=== PATIENT | female | born 1935 | race Caucasian/White ===

== ENCOUNTER 2016-09-06 15:13 | Inpatient (IN) | payer MEDICARE, OTHER ==
[~2016-09-06] VITALS: Ht 160 cm; Wt 47.7 kg
[~2016-09-06 15:13] MED LIST: BACITRACIN OINT TOPICAL ONE; ESMOLOL 100 MG/10 ML VL IV ONE; FENTANYL 100 MCG/2 ML AMP IV ONE; KETAMINE INJ 50 MG/ML VIAL IV ONE; ONDANSETRON 4 MG VIAL IV PUSH ONE; PHENYLEPHRINE 10 MG/ML VIAL IV ONE; PROPOFOL 50ML PER ML IV ONE
[2016-09-06] MEDS ORDERED: MORPHINE 2 MG/ML SYR ONE ×3 (16:32→18:30)
[2016-09-06] MEDS ORDERED: ONDANSETRON 4 MG VIAL ONE (16:32)
[2016-09-06] MEDS ORDERED: ALU/MAG/SIM 30 ML UDC PO PRN (20:50)
[2016-09-06] MEDS ORDERED: SALINE FLUSH 10 ML FLUSH PRN (20:50)
[2016-09-06] MEDS ORDERED: MAG HYDROX 30 ML UDC PO PRN (20:50)
[2016-09-06] MEDS ORDERED: BISACODYL 10 MG SUPP RECTAL PRN (20:50)
[2016-09-06] MEDS ORDERED: ONDANSETRON 4 MG VIAL IV PRN (20:50)
[2016-09-06] MEDS ORDERED: LACT RINGERS 1,000 ML IV SCH (20:50)
[2016-09-06] MEDS ORDERED: BISACODYL EC 5 MG TAB PO PRN (20:50)
[2016-09-06] MEDS ORDERED: MORPHINE 2 MG/ML SYR IV PRN (20:50)
[2016-09-06 21:24] VITALS: BP_SYST 132; RESP 20; TEMP 98
[2016-09-06 22:30] VITALS: Ht 160 cm; Wt 47.7 kg
[2016-09-06] MEDS ORDERED: LORAZEPAM 2 MG/ML VIAL IV ONE (23:35)
[2016-09-07] VITALS (25 sets, daily range): BP systolic 93–150; RESP 10–20; TEMP 97–99.7
[2016-09-07] MEDS ORDERED: GLUCAGON 1 MG VIAL IM PRN (00:05)
[2016-09-07] MEDS ORDERED: DEXTROSE 50% SYRINGE 50 ML IV PRN (00:05)
[2016-09-07] MEDS: DILAUDID 1 MG/ML AMP IV PRN ×4 (01:59→22:04)
[2016-09-07] MEDS: SODIUM CHLORIDE 0.9% FLUSH BAG 500 ML IV SCH (06:00)
[2016-09-07] MEDS ORDERED: CLINDAMYCIN 900 MG in DEXTROSE 5% 50 ML IV ONE (07:10)
[2016-09-07] MEDS ORDERED: PHARMACY TO DOSE VANCOMYCIN IV ONE (07:10)
[2016-09-07] MEDS ORDERED: VANCOMYCIN 750 MG in SODIUM CHLORIDE 0.9% 250 ML IV ONE (07:15)
[2016-09-07] MEDS: SALINE FLUSH 10 ML FLUSH SCH ×3 (08:00→19:58)
[2016-09-07] MEDS ORDERED: LACT RINGERS 1,000 ML IV SCH ×2 (09:05→16:00)
[2016-09-07] MEDS ORDERED: MORPHINE 4 MG/ML SYR IV PRN (14:55)
[2016-09-07] MEDS ORDERED: ONDANSETRON 4 MG VIAL IV PRN ×2 (14:55→16:00)
[2016-09-07] MEDS ORDERED: OXYCODONE 5 MG TAB PO PRN (14:55)
[2016-09-07] MEDS ORDERED: DILAUDID 1 MG/ML AMP IV PRN (14:55)
[2016-09-07] MEDS ORDERED: MORPHINE 2 MG/ML SYR IV PRN (14:55)
[2016-09-07] MEDS ORDERED: MEPERIDINE 25 MG/ML IV PRN (14:55)
[2016-09-07] MEDS ORDERED: SALINE FLUSH 10 ML FLUSH PRN (16:00)
[2016-09-07] MEDS ORDERED: PHARMACY TO DOSE VANCOMYCIN IV SCH (16:00)
[2016-09-07] MEDS ORDERED: ZOLPIDEM 5 MG TAB PO PRN (16:00)
[2016-09-07] MEDS ORDERED: MAG HYDROX 30 ML UDC PO PRN (16:00)
[2016-09-07] MEDS: CLINDAMYCIN 900 MG in DEXTROSE 5% 50 ML IV SCH (19:53)
[2016-09-07] MEDS: SENNA 8.6 MG TAB PO SCH (20:01)
[2016-09-07] MEDS: PRAVASTATIN 40 MG TAB PO SCH (20:01)
[2016-09-07] MEDS: DOCUSATE SOD 100 MG CAP PO SCH (20:01)
[2016-09-08] MEDS: CLINDAMYCIN 900 MG in DEXTROSE 5% 50 ML IV SCH ×3 (01:59→13:07)
[2016-09-08 03:48] VITALS: BP_SYST 104; RESP 18; TEMP 97.6
[2016-09-08] MEDS: SODIUM CHLORIDE 0.9% FLUSH BAG 500 ML IV SCH ×2 (06:00)
[2016-09-08] MEDS ORDERED: Rivaroxaban 10 MG TAB PO SCH (06:00)
[2016-09-08] MEDS: LEVOTHYROXINE 0.025 MG TAB PO SCH (06:56)
[2016-09-08] MEDS: SALINE FLUSH 10 ML FLUSH SCH ×3 (08:00→20:20)
[2016-09-08 08:06] VITALS: BP_SYST 110; RESP 16; TEMP 98.1
[2016-09-08] MEDS: FLUDROCORTISONE 0.1 MG TAB PO SCH (08:40)
[2016-09-08] MEDS: ASPIRIN 81 MG CHEW TAB PO SCH (08:40)
[2016-09-08] MEDS: ESCITALOPRAM 10 MG TAB PO SCH (08:40)
[2016-09-08] MEDS: LEVEMIR INSULIN SUBQ SCH (08:41)
[2016-09-08] MEDS: POLYETHYLENE GLYCOL 17 GM PACKET PO SCH (08:41)
[2016-09-08] MEDS: SENNA 8.6 MG TAB PO SCH ×2 (08:41→20:19)
[2016-09-08] MEDS: DOCUSATE SOD 100 MG CAP PO SCH ×2 (08:41→20:19)
[2016-09-08] MEDS: MAG HYDROX 30 ML UDC PO SCH (08:41)
[2016-09-08] MEDS: ENOXAPARIN 40 MG/0.4 ML SYR SUBQ SCH (08:43)
[2016-09-08] MEDS ORDERED: VANCOMYCIN 750 MG in SODIUM CHLORIDE 0.9% 250 ML IV ONE (10:00)
[2016-09-08 12:21] VITALS: BP_SYST 122; RESP 16; TEMP 97.6
[2016-09-08 16:10] VITALS: BP_SYST 98; RESP 20; TEMP 97.5
[2016-09-08] MEDS ORDERED: DILAUDID 1 MG/ML AMP IV PRN (17:35)
[2016-09-08] MEDS ORDERED: FLEET ENEMA 132 ML BTL RECTAL PRN (18:05)
[2016-09-08] MEDS ORDERED: BISACODYL 10 MG SUPP RECTAL PRN (18:05)
[2016-09-08] MEDS: PRAVASTATIN 40 MG TAB PO SCH (20:19)
[2016-09-08 23:08] VITALS: BP_SYST 104; RESP 18; TEMP 98
[2016-09-09 04:02] VITALS: BP_SYST 135; RESP 18; TEMP 99.8
[2016-09-09] MEDS: SODIUM CHLORIDE 0.9% FLUSH BAG 500 ML IV SCH ×2 (06:00)
[2016-09-09] MEDS: LEVOTHYROXINE 0.025 MG TAB PO SCH (06:34)
[2016-09-09] MEDS: MAG HYDROX 30 ML UDC PO SCH (07:53)
[2016-09-09] MEDS: DOCUSATE SOD 100 MG CAP PO SCH ×2 (07:54→20:43)
[2016-09-09] MEDS: ASPIRIN 81 MG CHEW TAB PO SCH (07:54)
[2016-09-09] MEDS: FLUDROCORTISONE 0.1 MG TAB PO SCH (07:54)
[2016-09-09] MEDS: SENNA 8.6 MG TAB PO SCH ×2 (07:54→20:42)
[2016-09-09] MEDS: ESCITALOPRAM 10 MG TAB PO SCH (07:54)
[2016-09-09] MEDS: ENOXAPARIN 40 MG/0.4 ML SYR SUBQ SCH (07:56)
[2016-09-09] MEDS: LEVEMIR INSULIN SUBQ SCH (07:57)
[2016-09-09] MEDS: POLYETHYLENE GLYCOL 17 GM PACKET PO SCH (07:57)
[2016-09-09] MEDS: SALINE FLUSH 10 ML FLUSH SCH ×2 (07:57→20:00)
[2016-09-09 08:21] VITALS: BP_SYST 138; RESP 18
[2016-09-09] MEDS: HALOPERIDOL 5 MG/ML VIAL IM/IV PRN (09:22)
[2016-09-09] MEDS: ACETAMINOPHEN 500 MG TAB PO SCH ×3 (09:23→23:48)
[2016-09-09 11:00] VITALS: BP_SYST 130; RESP 18; TEMP 98.3
[2016-09-09] MEDS: DIGOXIN 0.125 MG TAB PO SCH ×2 (12:18→13:02)
[2016-09-09 15:22] VITALS: BP_SYST 130; RESP 20; TEMP 97.1
[2016-09-09 19:17] VITALS: BP_SYST 140; RESP 16; TEMP 98
[2016-09-09] MEDS: PRAVASTATIN 40 MG TAB PO SCH (20:43)
[2016-09-09 22:58] VITALS: BP_SYST 128; RESP 18; TEMP 98.4
[2016-09-10] MEDS: HALOPERIDOL 5 MG/ML VIAL IM/IV PRN (01:25)
[2016-09-10 03:17] VITALS: BP_SYST 128; RESP 14; TEMP 98.2
[2016-09-10] MEDS: SODIUM CHLORIDE 0.9% FLUSH BAG 500 ML IV SCH ×2 (06:00)
[2016-09-10] MEDS: LEVOTHYROXINE 0.025 MG TAB PO SCH (06:06)
[2016-09-10] MEDS ORDERED: LEVEMIR INSULIN SUBQ SCH (08:00)
[2016-09-10 08:31] VITALS: BP_SYST 136; RESP 18; TEMP 98.5
[2016-09-10] MEDS: POLYETHYLENE GLYCOL 17 GM PACKET PO SCH (09:00)
[2016-09-10] MEDS: MAG HYDROX 30 ML UDC PO SCH (09:00)
[2016-09-10] MEDS: SENNA 8.6 MG TAB PO SCH ×2 (09:00→21:00)
[2016-09-10] MEDS: SALINE FLUSH 10 ML FLUSH SCH ×2 (09:23→20:57)
[2016-09-10] MEDS: FLUDROCORTISONE 0.1 MG TAB PO SCH (09:23)
[2016-09-10] MEDS: ESCITALOPRAM 10 MG TAB PO SCH (09:23)
[2016-09-10] MEDS: ACETAMINOPHEN 500 MG TAB PO SCH ×3 (09:23→23:47)
[2016-09-10] MEDS: ASPIRIN 81 MG CHEW TAB PO SCH (09:23)
[2016-09-10] MEDS: DOCUSATE SOD 100 MG CAP PO SCH ×2 (09:23→21:00)
[2016-09-10] MEDS: ENOXAPARIN 40 MG/0.4 ML SYR SUBQ SCH (09:24)
[2016-09-10] MEDS: LEVEMIR INSULIN SUBQ SCH (09:25)
[2016-09-10 12:22] VITALS: BP_SYST 122; RESP 20; TEMP 98.2
[2016-09-10 15:51] VITALS: BP_SYST 132; RESP 20; TEMP 98.3
[2016-09-10 19:40] VITALS: BP_SYST 125; RESP 18; TEMP 98.5
[2016-09-10] MEDS: PRAVASTATIN 40 MG TAB PO SCH (21:01)
[2016-09-10 23:26] VITALS: BP_SYST 143; RESP 20; TEMP 97.4
[2016-09-11] MEDS: DILAUDID 1 MG/ML AMP IV PRN ×5 (00:15→07:01)
[2016-09-11] MEDS: SODIUM CHLORIDE 0.9% FLUSH BAG 500 ML IV SCH ×2 (06:00)
[2016-09-11] MEDS: LEVOTHYROXINE 0.025 MG TAB PO SCH (06:01)
[2016-09-11 07:39] VITALS: BP_SYST 124; RESP 18; TEMP 98.3
[2016-09-11] MEDS: SALINE FLUSH 10 ML FLUSH SCH ×2 (08:15→20:54)
[2016-09-11] MEDS: ACETAMINOPHEN 500 MG TAB PO SCH ×3 (08:17→23:33)
[2016-09-11] MEDS: ASPIRIN 81 MG CHEW TAB PO SCH (08:18)
[2016-09-11] MEDS: FLUDROCORTISONE 0.1 MG TAB PO SCH (08:18)
[2016-09-11] MEDS: ESCITALOPRAM 10 MG TAB PO SCH (08:18)
[2016-09-11] MEDS: DOCUSATE SOD 100 MG CAP PO SCH ×2 (08:19→21:39)
[2016-09-11] MEDS: SENNA 8.6 MG TAB PO SCH ×2 (08:19→21:39)
[2016-09-11] MEDS: POLYETHYLENE GLYCOL 17 GM PACKET PO SCH (08:20)
[2016-09-11] MEDS: MAG HYDROX 30 ML UDC PO SCH (08:20)
[2016-09-11] MEDS: ENOXAPARIN 40 MG/0.4 ML SYR SUBQ SCH (08:21)
[2016-09-11] MEDS: LEVEMIR INSULIN SUBQ SCH (08:25)
[2016-09-11 11:35] VITALS: BP_SYST 115; RESP 18; TEMP 97.5
[2016-09-11] MEDS: DIGOXIN 0.125 MG TAB PO SCH (12:29)
[2016-09-11 15:24] VITALS: BP_SYST 130; RESP 18; TEMP 97.9
[2016-09-11 20:11] VITALS: BP_SYST 126; RESP 18; TEMP 98
[2016-09-11] MEDS ORDERED: DONEPEZIL HCL 5 MG TAB PO SCH (21:00)
[2016-09-11] MEDS ORDERED: MISSING DOSE XX ONE (21:35)
[2016-09-11] MEDS: PRAVASTATIN 40 MG TAB PO SCH (21:39)
[2016-09-11] MEDS: HALOPERIDOL 5 MG/ML VIAL IM/IV PRN (21:39)
[2016-09-11 22:44] VITALS: BP_SYST 90; RESP 20; TEMP 97.8
[2016-09-12] MEDS: HALOPERIDOL 5 MG/ML VIAL IM/IV PRN (03:45)
[2016-09-12] MEDS: SODIUM CHLORIDE 0.9% FLUSH BAG 500 ML IV SCH ×2 (06:00)
[2016-09-12] MEDS: LEVOTHYROXINE 0.025 MG TAB PO SCH (06:39)
[2016-09-12 07:38] VITALS: BP_SYST 112; RESP 16; TEMP 97.6
[2016-09-12] MEDS: SALINE FLUSH 10 ML FLUSH SCH (08:02)
[2016-09-12] MEDS: LEVEMIR INSULIN SUBQ SCH (08:03)
[2016-09-12] MEDS: DOCUSATE SOD 100 MG CAP PO SCH (08:09)
[2016-09-12] MEDS: FLUDROCORTISONE 0.1 MG TAB PO SCH (08:09)
[2016-09-12] MEDS: ASPIRIN 81 MG CHEW TAB PO SCH (08:09)
[2016-09-12] MEDS: ESCITALOPRAM 10 MG TAB PO SCH (08:09)
[2016-09-12] MEDS: ACETAMINOPHEN 500 MG TAB PO SCH (08:09)
[2016-09-12] MEDS: ENOXAPARIN 40 MG/0.4 ML SYR SUBQ SCH (08:10)
[2016-09-12] MEDS: MAG HYDROX 30 ML UDC PO SCH (08:13)
[2016-09-12] MEDS: SENNA 8.6 MG TAB PO SCH (08:13)
[2016-09-12] MEDS: POLYETHYLENE GLYCOL 17 GM PACKET PO SCH (08:13)
[2016-09-12 10:54] VITALS: BP_SYST 112; RESP 16; TEMP 97.6
== END 2016-09-12 11:39 | DRG 470 ==
LOC: ENRESERVDT → ENRESERVTM → ER 15:13 → DELPENDDIS 19:14 → ENPENDDIS 19:14 → EMR 19:14 → 2NO 21:10
PROVIDERS: ADMIT Internal Medicine; ATTEND Internal Medicine
PROC: 0SRS03Z Replacement of Left Hip Joint, Femoral Surface with Ceramic Synthetic Substitute, Open Approach (ICD-10-PCS; principal; 2016-09-07 14:18)
DX: S72.002A Fracture of unspecified part of neck of left femur, initial encounter for closed fracture (principal); W19.XXXA Unspecified fall, initial encounter; Y92.129 Unspecified place in nursing home as the place of occurrence of the external cause; E11.9 Type 2 diabetes mellitus without complications; Z79.4 Long term (current) use of insulin; F32.9 Major depressive disorder, single episode, unspecified; K21.9 Gastro-esophageal reflux disease without esophagitis; E03.9 Hypothyroidism, unspecified; I48.0 Paroxysmal atrial fibrillation; E78.5 Hyperlipidemia, unspecified; F03.90 Unspecified dementia, unspecified severity, without behavioral disturbance, psychotic disturbance, mood disturbance, and anxiety; F41.9 Anxiety disorder, unspecified; J45.909 Unspecified asthma, uncomplicated; I10 Essential (primary) hypertension; R41.0 Disorientation, unspecified; T40.605A Adverse effect of unspecified narcotics, initial encounter; Z95.0 Presence of cardiac pacemaker
CPT/HCPCS: 36415; 51702; 71010; 80048; 80162; 81003; 82947; 85025; 85610; 85730; 87088; 93005; 94799; 96374; 96375; 96376; 99222; 99232; 99233; 99239